=== PATIENT | male | born 2000 | race Caucasian/White ===

== ENCOUNTER 2018-01-26 19:27 | Emergency (ER) | payer BC, OTHER ==
[2018-01-26] MEDS ORDERED: Ondansetron HCl/PF 4 MG/2 ML Vial ONE (19:37)
[2018-01-26 20:10] LABS: #Eosinphils 0.1 thou/uL (0.0-0.7); #Monocytes 0.4 thou/uL (0.11-0.59); #Neutrophils 6.2 thou/uL (1.40-6.50); %Basophils 0.1 % (0.0-1.0); %Neutrophils 70.9 % (31.0-61.0); Hemoglobin 15.1 g/dL (14.0-18.0); Mean Corpuscular HGB CONC 36.2 g/dL (32.0-36.0); Mean Corpuscular Hemoglobin 31.8 pg (25.0-35.0); Mean Corpuscular Volume 87.8 fL (78.0-98.0); Mean Platelet Volume 6.5 fL (7.4-10.4); Platelet Count 339 thou/uL (130-400); RBC Distribution Width 11.7 % (11.5-14.5); Red Blood Cell (RBC) Count 4.76 mill/uL (4.00-5.20); White Blood Cell (WBC) Count 8.8 thou/uL (4.8-10.8)
[2018-01-26 20:31] LABS: Acetaminophen Less than 6.0 mcg/mL (10.0-30.0); Alcohol 233 mg/dL (Less than 10); Salicylate Less than 8.0 mg/dL (15.0-30.0)
[2018-01-26 20:32] LABS: Anion Gap 14 mmol/L (10-20); BUN (Urea Nitrogen) 6 mg/dL (8.4-21.0); CK (CPK) 54 U/L (30-200); Calc. Creatinine Clearance 0 mL/min (70-130); Calcium 8.4 mg/dL (7.8-10.44); Carbon Dioxide 21 mmol/L (22-29); Chloride 115 mmol/L (98-107); Estimated GFR-MDRD Greater than 90; Glucose 102 mg/dL (70-105); Potassium 3.6 mmol/L (3.5-5.1); Sodium 146 mmol/L (136-145)
== END 2018-01-26 21:26 | disposition home or self-care (01) ==
LOC: ERS 19:27
DX: R07.81 Pleurodynia (principal)
CPT/HCPCS: 80048; 80307; 82550; 85025; 96361; 96374; J2405

== ENCOUNTER → 2018-03-13 | Day surgery (SDC) | payer BC ==
[~2018-03-13] MED LIST: Bupivacaine/Epinephrine 0.25% 30 ML VIAL ONE; Dexamethasone 20 MG/5 ML VIAL ONE; Fentanyl 100 MCG/2 ML VIAL ONE; Glycopyrrolate 0.2 MG/ML 5 ML SYRINGE ONE; HYDROcodone/Acetaminophen 5/325 mg Tablet ONE; Ketorolac Tromethamine 30 MG/ML VIAL ONE; Lidocaine 1% PF 5 ML VIAL ONE; Ondansetron PF 4 MG/2 ML Vial ONE; PROPOFOL 200 MG/20 ML VIAL ONE; Piperacillin/Tazobactam 4.5 GM VIAL ONE; Sodium Chloride 0.9% 100 ML ONE; Succinylcholine Chloride 20 MG/ML 10 ml SYRINGE FS ONE
[2018-03-13 12:39] LABS: #Basophils 0.1 thou/uL (0.0-0.2); #Eosinphils 0.1 thou/uL (0.0-0.7); #Lymphocytes 2.1 thou/uL (1.20-3.40); #Monocytes 0.7 thou/uL (0.11-0.59); #Neutrophils 9.5 thou/uL (1.40-6.50); %Basophils 0.5 % (0.0-1.0); %Eosinophils 0.6 % (0.0-10.0); %Lymphocytes 16.7 % (28.0-48.0); %Monocytes 5.3 % (0.0-4.0); %Neutrophils 76.9 % (31.0-61.0); Hemoglobin 16.1 g/dL (14.0-18.0); Mean Corpuscular Hemoglobin 28.1 pg (25.0-35.0); Mean Corpuscular Volume 82.7 fL (78.0-98.0); Mean Platelet Volume 6.9 fL (7.4-10.4); Platelet Count 307 thou/uL (130-400); RBC Distribution Width 10.5 % (11.5-14.5); Red Blood Cell (RBC) Count 5.74 mill/uL (4.00-5.20); White Blood Cell (WBC) Count 12.3 thou/uL (4.8-10.8)
[2018-03-13 12:44] LABS: Bilirubin Negative (Negative); Blood, Urine Negative (Negative); Clarity Clear (Clear); Glucose, Urine (Dipstick) Negative (Negative); Leukocyte Negative (Negative); Nitrite Negative (Negative); Protein, Urine (Dipstick) Negative (Neg-Trace); Specific Gravity, Urine 1.015 (1.005-1.030)
[2018-03-13 12:56] LABS: ALT (SGPT) 19 U/L (8-55); AST (SGOT) 16 U/L (10-45); Albumin 4.9 g/dL (3.5-5.0); Alkaline Phosphatase 81 U/L (Less than 750); Anion Gap 15 mmol/L (10-20); BUN (Urea Nitrogen) 12 mg/dL (8.4-21.0); Bilirubin, Total 2.1 mg/dL (0.2-1.2); Calc. Creatinine Clearance 0 mL/min (70-130); Calcium 9.8 mg/dL (7.8-10.44); Carbon Dioxide 24 mmol/L (22-29); Chloride 105 mmol/L (98-107); Estimated GFR-MDRD Greater than 90; Globulin 3.3 g/dL (2.4-3.5); Glucose 86 mg/dL (70-105); Lipase 7 U/L (8-78); Potassium 3.7 mmol/L (3.5-5.1); Protein, Total 8.2 g/dL (6.0-8.3); Sodium 140 mmol/L (136-145)
--- NOTE | 2018-03-13 15:05 | CT ---
CT ABDOMEN WITH CONTRAST CT PELVIS WITH CONTRAST: DATE: 03/13/18 TIME: 1419 hours HISTORY: 17-year-old male with right lower quadrant abdominal pain with nausea and diarrhea, with anorexia. Dr. Grimm reported the perforated appendicitis by telephone to Dr. Aidan Acevedo of the [facility] emergency department at 1428 hours on 03/13/18. COMPARISON: None. TECHNIQUE: IV injection of iodinated contrast media: 100 mL Isovue-300. Oral contrast media: Administered. FINDINGS: The appendix is thickened up to 10 mm caliber, and is surrounded by a small amount of periappendiceal fluid. No abscess. No pneumoperitoneum. The urinary bladder, abdominal aorta, bilateral kidneys, adr enals, pancreas, liver, and spleen are normal. No small bowel dilation. No acute findings of the colo n. Lung bases are grossly clear. IMPRESSION: Positive for acute appendicitis, probably perforated. JNR CODE CR.
--- NOTE | 2018-03-13 17:00 | HP ---
DATE OF ADMISSION: 03/13/2018 HISTORY OF PRESENT ILLNESS: Mr. Lind is a 17-year-old man [facility] [place]. Patient was complaining of insidious onset periumbilical abdominal pain which started yesterday and soon set on the right lower quadrant. Pain was described as sharp, associated with one episode of nausea, but no emesis. He has had one bout of diarrhea since. He denies any fev ers or chills. The pain is now worsened to include the left lower quadrant. Workup included a CT scan of the abdomen and pelvis which was notable for possible perforated appendi x. The patient was transferred to [facility] in [place], [place] for upper level surgical care. At the time of my evaluation, the patient is awake and alert, complains of a 7/10 right lower quadrant a bdominal pain. He denies any fevers or chills. PAST MEDICAL HISTORY: Denies any previous medical problems. PAST SURGICAL HISTORY: Denies any previous surgeries. SOCIAL HISTORY: He is single, lives independently. He admits to smoking marijuana occasionally. He admits occasional intake of ethanol in moderate amounts. He denies any other illicit drug abuse. FAMILY HISTORY: Notable for both paternal grandparents with diabetes mellitus. His paternal grandfa ther from complications of prostatic carcinoma. He denies any family history of heart disease o r essential hypertension. PREHOSPITALIZATION MEDICATIONS: None. ALLERGIES: Patient denies any known drug allergies. REVIEW OF SYSTEMS: A 10-point review of systems is essentially unremarkable except for as stated in past medical history and chief complaint. PHYSICAL EXAMINATION: GENERAL: This reveals a 17-year-old normally developed man who is otherwise coherent and interactive and appears stated age. Patient is alert and oriented x3, appears to be in moderate acute distress secondary to right lower quadrant abdominal pain. VITAL SIGNS: Today include blood pressure 120/74, pulse is 81, respiration rate is 17, temperature i s 98.5 degrees Fahrenheit, oxygen saturation is 99% on room air. HEENT: Reveals normocephalic and atraumatic. Pupils are equal, round, reactive to light and accommo dation. Extraocular muscles are intact bilaterally. No sclerae icterus is present. Oral mucosa is pink and moist. No lesions are noted. NECK: Supple. No palpable lymphadenopathy or thyromegaly present. CARDIOVASCULAR: Reveals regular rate and rhythm, no murmurs or gallops auscultated. LUNGS: Clear to auscultation bilaterally. Breathing is regular and unlabored. ABDOMEN: Soft and nondistended. He has right lower quadrant tenderness to palpation. He has a positive Rovsing sign. Liver and spleen otherwise nonpalpable below costal margin. EXTREMITIES: Reveals 2+ radial and pedal pulses bilaterally. No ankle edema is present. NEUROLOGIC: Reveals no focal neurological deficits present. PERTINENT LABORATORY FINDINGS: Today includes a CBC with 12,300 white blood cells, hemoglobin and he matocrit 16.1 and 47.5 respectively. Platelet count is 307,000. Metabolic profile: Sodium 140, pot assium is 3.7, chloride is 105, bicarbonate is 24, BUN 12, creatinine 0.84, glucose 86, total bilirub in is 2.1, AST and ALT are 16 and 19 respectively. Serum lipase is normal at 7. I have personally reviewed his CT scan of the abdomen and pelvis which reveals a dilated thick-walled appendix with periappendiceal fat stranding and periappendiceal free fluid. No pneumoperitoneum is present. IMPRESSION: Acute appendicitis, likely with perforation. PLAN: Laparoscopic appendectomy. Above findings and plan has been discussed with the patient who indicates understanding of informatio n given. I have also advised the patient of the risk and benefits of the proposed surgery to include , but not limited to bleeding, infection, injury to bowel and surrounding structures. Patient indica stevenson understanding of information I have given him today in the presence of his nurse. I have answere d his questions. The patient has granted consent for this admission and surgical intervention.
--- NOTE | 2018-03-14 00:49 | OP ---
DATE OF OPERATION: 03/13/2018 PREOPERATIVE DIAGNOSIS: Acute appendicitis. POSTOPERATIVE DIAGNOSIS: Acute retrocecal appendicitis. OPERATION PERFORMED: Laparoscopic appendectomy. SURGEON: Juan Diego Castro DO ANESTHESIA: General endotracheal. ESTIMATED BLOOD LOSS: 10 mL FLUIDS GIVEN: 800 mL crystalloids. SPONGE AND INSTRUMENT COUNT: Certified as correct x2. COMPLICATIONS: None apparent at the time of operation. INDICATIONS FOR OPERATION: A 17-year-old man who presented with a 24-hour history of right lower quadrant abdominal pain. Clinical and radiographic examination was consistent with acute appe ndicitis for which patient was brought to the operating room for appendectomy. FINDINGS: Consistent with a dilated suppurative, but nonperforated retrocecal appendix. DESCRIPTION OF PROCEDURE: Informed consent was obtained from the patient who was brought to the oper ating room and placed in supine position. Following general anesthesia, abdomen is sterilely prepped and draped in usual fashion. Skin below the umbilicus was infiltrated with 0.25% Marcaine with epin ephrine. A small curvilinear infraumbilical incision was made using an 11 scalpel. Veress needle wa s inserted through the incision and placed in the peritoneal cavity through which the abdomen was ins ufflated with 3 liters of CO2 gas. Intraabdominal pressure was noted at 2 mmHg. Following abdominal insufflation, Veress needle was removed and replaced with a 5-mm trocar introduced using a Visiport under laparoscopy. Laparoscopy confirmed proper placement of the port, no injuries to underlying str uctures. An additional laparoscopy reveals the right lower quadrant encased by omental adhesions. U nder direct laparoscopy, 5-mm suprapubic and 12-mm left lower quadrant ports were placed after the ov erlying skin was infiltrated with 0.25% Marcaine with epinephrine and appropriate incision was made. The patient was placed in a Trendelenburg position, rotated to his left. I introduced Prestige gras per through the left lower quadrant port site using this to bluntly take down omental adhesions to re veal the cecum. The cecum is tender to the right lateral gutter by fibrotic tissues. I then used a [place] dissector with cautery to take down the fibrotic tissues from the right lateral gutter, care taken to avoid injuries to bowel. Endo Lea forceps was then introduced through the suprapubic p ort site, grasping the retrocecal appendix which was elevated. I then used a [place] dissector to c reate a rent through the mesoappendix at the base. Using a blue load of the Endo-MARCELA, appendix was d ivided at the appendical cecal junction. Endo-MARCELA with a white load was then used to divide the meso appendix with good hemostasis. Appendix is delivered of the abdominal cavity using an EndoCatch. Di stal ileum was run from the ileocecal junction to proximal 2 feet. No Meckel's diverticulum was note d. Finding no other pathology, laparoscopy was terminated. Operative site was inspected and is inta ct. No active bleeding present. Finding no other pathology, laparoscopy was terminated. Fascia of the left lower quadrant port was closed using 0 Vicryl suture and Endo closure device under laparosco py. Abdomen was desufflated. Remainder of the ports and instruments were removed and accounted for. Skin incisions were closed using 4-0 Monocryl suture in subcuticular fashion. Dermabond was applie d over the incisional closure. The patient tolerated the operation without any apparent complication and was returned to the recovery room in a satisfactory condition.
== END ==
LOC: SCSER 11:46 → ERS 14:57
PROVIDERS: ATTEND Surgery
PROC: 0DTJ4ZZ Resection of Appendix, Percutaneous Endoscopic Approach (ICD-10-PCS; principal; 2018-03-13)
DX: K35.80 Unspecified acute appendicitis (principal)
CPT/HCPCS: 74177; 80053; 81003; 83690; 85025; 88304; 96361; 96365; 96374; 96375; J1100; J1885; J2001; J2405; J2543; J2704; J3010; J7050

== ENCOUNTER 2018-03-14 07:52 | Observation (INO) | payer BC ==
[2018-03-14] MEDS ORDERED: Ketorolac Tromethamine 30 MG/ML VIAL ONE (08:36)
[2018-03-14 08:48] LABS: ALT (SGPT) 12 U/L (8-55); AST (SGOT) 12 U/L (10-45); Albumin 3.9 g/dL (3.5-5.0); Alkaline Phosphatase 61 U/L (Less than 750); Anion Gap 13 mmol/L (10-20); BUN (Urea Nitrogen) 12 mg/dL (8.4-21.0); Bilirubin, Total 1.2 mg/dL (0.2-1.2); Calc. Creatinine Clearance 0 mL/min (70-130); Calcium 8.6 mg/dL (7.8-10.44); Carbon Dioxide 25 mmol/L (22-29); Chloride 103 mmol/L (98-107); Estimated GFR-MDRD Greater than 90; Globulin 2.5 g/dL (2.4-3.5); Glucose 187 mg/dL (70-105); Lipase Less than 4 U/L (8-78); Potassium 4.4 mmol/L (3.5-5.1); Protein, Total 6.4 g/dL (6.0-8.3); Sodium 137 mmol/L (136-145)
[2018-03-14 08:52] LABS: Mean Corpuscular Volume 88.4 fL (78.0-98.0); Mean Platelet Volume 6.6 fL (7.4-10.4); Platelet Count 496 thou/uL (130-400); RBC Distribution Width 11.5 % (11.5-14.5); White Blood Cell (WBC) Count 27.2 thou/uL (4.8-10.8)
[2018-03-14 09:10] LABS: Band 12 % (5-11); Lymphocytes 6 % (28-48); MDiff Complete? YES; Monocytes 3 % (0-4); Neutrophil 78 % (31-61); RBC Morphology Normal; Reactive Lymphocytes 1 % (0-10)
[2018-03-14] MEDS ORDERED: Ondansetron PF 4 MG/2 ML Vial IVP PRN (09:17)
[2018-03-14] MEDS ORDERED: Promethazine HCl 25 MG/ML VIAL IM PRN (09:17)
[2018-03-14] MEDS ORDERED: hydrALAZINE 20 MG/ML VIAL SLOW IVP PRN (09:17)
[2018-03-14] MEDS ORDERED: traMADol HCl 50 MG TAB PO PRN (09:19)
[2018-03-14] MEDS ORDERED: Ondansetron PF 4 MG/2 ML Vial ONE (09:37)
[2018-03-14] MEDS ORDERED: Promethazine HCl 25 MG/ML VIAL ONE (10:04)
--- NOTE | 2018-03-14 10:49 | HP ---
HISTORY OF PRESENT ILLNESS: A 17-year-old man who is postoperative day #1 today status post laparosc opic appendectomy. The patient presented to the emergency department with complaint of abdominal katya n associated with nausea and one bout of emesis. Denies any fevers or chills. He did have a near syncopal episode while trying to use the bathroom this morning. He did pass gas a bout 30 minutes before my evaluation in the emergency department. PAST MEDICAL HISTORY: He has no previous medical problems. PAST SURGICAL HISTORY: He is postop day #1 status post laparoscopic appendectomy. Otherwise, no oth er surgeries. SOCIAL HISTORY: He is single, living independently. The patient admits to smoking marijuana occasio slava. He admits to occasional intake of ethanol in moderate amounts. Denies any illicit drug abuse . FAMILY HISTORY: Notable for both grandparents with diabetes mellitus. His paternal grandfather from complications of prostatic carcinoma. He has no family history of heart disease or hypertensio n. PREHOSPITAL MEDICATIONS: Include recently prescribed tramadol 50 mg as well as Tylenol 1000 mg p.o. q.6 hours. ALLERGIES: Patient denies any known drug allergies. REVIEW OF SYSTEMS: Essentially unremarkable except as stated in the past medical history and chief c omplaint. PHYSICAL EXAMINATION: GENERAL: This reveals a 17-year-old normally developed man who is otherwise coherent and interactive . He appears to be stated age and in no acute distress. ABDOMEN: Soft, nondistended. All incisions are intact, clean, and dry. He has incisional tendernes s to palpation with no rebound tenderness present. HEART: Reveals regular rate and rhythm. LUNGS: Clear to auscultation bilaterally. Breathing is regular and unlabored. NEUROLOGICAL: Examination reveals no focal deficits present. LABORATORY DATA: Laboratory findings today includes CBC with 27,200 white blood cells, hemoglobin an d hematocrit are 12.0 and 35.4 respectively. Platelet count is 496,000. Metabolic profile: Sodium 137, potassium 4.4, chloride is 103, bicarbonate is 25, BUN 12, creatinine is 1.0, glucose is 187, to [place]in[place] bilirubin is 1.2, AST and ALT 12 and 12 respectively. Lipase less than 4. IMPRESSION: 1. Postoperative day #1 status post laparoscopic appendectomy. 2. Adynamic ileus. PLAN: The patient will be placed on observation. We will increase activity and start clear liquid d iet once nausea resolves. There is no acute surgical indication for this patient at this time. Abov e findings and plan discussed with the patient and both parents at bedside. They all indicated under standing of information given. I answered their questions.
[2018-03-14 11:19] VITALS: BMI 29.7
[2018-03-14] MEDS: Acetaminophen 500 MG TAB PO SCH ×4 (11:29→20:13)
[2018-03-14 12:17] LABS: Acetaminophen Less than 6.0 mcg/mL (10.0-30.0); Alcohol Less than 10 mg/dL (Less than 10); Salicylate Less than 8.0 mg/dL (15.0-30.0)
[2018-03-14 12:26] LABS: Lactic Acid 4.7 mmol/L (0.5-2.2)
[2018-03-14] MEDS: Lactated Ringer's 1,000 ML IV SCH ×2 (12:54→20:23)
[2018-03-14] MEDS ORDERED: Scopolamine 1.5 mg/72 hour Patch TOP SCH (13:00)
[2018-03-14] MEDS ORDERED: Dexamethasone 4 mg/ml Vial SLOW IVP SCH (13:30)
[2018-03-14 19:09] LABS: #Lymphocytes 1.3 thou/uL (1.20-3.40); #Monocytes 0.8 thou/uL (0.11-0.59); %Basophils 0.1 % (0.0-1.0); %Eosinophils 0.2 % (0.0-10.0); %Lymphocytes 6.5 % (28.0-48.0); %Monocytes 3.7 % (0.0-4.0); %Neutrophils 89.5 % (31.0-61.0); Hemoglobin 8.4 g/dL (14.0-18.0); Mean Corpuscular HGB CONC 35.3 g/dL (32.0-36.0); Mean Corpuscular Hemoglobin 31.1 pg (25.0-35.0); Mean Corpuscular Volume 88.2 fL (78.0-98.0); Mean Platelet Volume 6.8 fL (7.4-10.4); Platelet Count 426 thou/uL (130-400); RBC Distribution Width 11.7 % (11.5-14.5); Red Blood Cell (RBC) Count 2.69 mill/uL (4.00-5.20); White Blood Cell (WBC) Count 20.1 thou/uL (4.8-10.8)
[2018-03-14 19:15] LABS: Anion Gap 13 mmol/L (10-20); BUN (Urea Nitrogen) 14 mg/dL (8.4-21.0); Calc. Creatinine Clearance 158 mL/min (70-130); Calcium 8.3 mg/dL (7.8-10.44); Carbon Dioxide 23 mmol/L (22-29); Chloride 106 mmol/L (98-107); Estimated GFR-MDRD Greater than 90; Glucose 132 mg/dL (70-105); Sodium 138 mmol/L (136-145)
[2018-03-14] MEDS: Famotidine 20 MG TAB PO SCH (20:13)
--- NOTE | 2018-03-14 20:53 | RAD ---
CHEST ONE VIEW: 03/14/18 HISTORY: Syncope. COMPARISON: None. FINDINGS: Normal cardiac silhouette. Lungs and pleural spaces are clear. Diminished lung volumes, likely due to poor inspiratory effort. No pneumothorax or osseous abnormalities. IMPRESSION: No acute cardiopulmonary process. POS: [facility]
[2018-03-14] MEDS: Famotidine/PF 20 mg/2ml Vial SLOW IVP SCH (21:01)
[2018-03-14] MEDS: Dexamethasone 4 mg/ml Vial SLOW IVP SCH (21:15)
[2018-03-14 22:40] LABS: Hemoglobin 7.5 g/dL (14.0-18.0)
[2018-03-14 22:52] LABS: Lactic Acid 1.4 mmol/L (0.5-2.2)
[2018-03-14] MEDS: Piperacillin/Tazobactam 3.375 GM in Sodium Chloride 0.9% 100 ML IVPB SCH (23:39)
[2018-03-14] MEDS ORDERED: Calcium Chloride 1 GM/10 ML Abboject SYRINGE IVP SCH (23:45)
[2018-03-15 00:21] LABS: INR-International Normal Ratio 1.4; PTT 32.6 SEC (22.9-36.1); Prothrombin Time 17.2 SEC (12.0-14.7)
[2018-03-15] MEDS: Acetaminophen 500 MG TAB PO SCH ×4 (05:33→23:34)
[2018-03-15] MEDS: Dexamethasone 4 mg/ml Vial SLOW IVP SCH ×2 (05:33→17:07)
[2018-03-15] MEDS: Piperacillin/Tazobactam 3.375 GM in Sodium Chloride 0.9% 100 ML IVPB SCH ×4 (06:15→23:34)
--- NOTE | 2018-03-15 08:13 | CT ---
PRELIMINARY REPORT/[facility]/EMERGENTY AFTER-HOURS PROCEDURE CT Abdomen and Pelvis With Intravenous Contrast EXAM DATE/TIME: 03/15/2018 1:25 AM CLINICAL HISTORY: 17 years old, male; Screening exam; Post surgical status; Appy; Patient HX: S/P appy; Additional info : Additional delayed images provided 4 min post TECHNIQUE: Axial computed tomography images of the abdomen and pelvis with intravenous contrast. Coronal reformatted images were created and reviewed. CONTRAST: 100 ml of ISO 370 administered intravenously. COMPARISON: No relevant prior studies available. FINDINGS: Lower thorax: Small bilateral pleural effusions. ABDOMEN: Liver: Normal. No mass. Gallbladder and bile ducts: Normal. No calcified stones. No ductal dilation. Pancreas: Normal. No ductal dilation. Spleen: Normal. No splenomegaly. Adrenals: Normal. No mass. Kidneys and ureters: Normal. No hydronephrosis. Stomach and bowel: No bowel wall thickening or intestinal obstruction. Appendix: Small amount of nondependent pneumoperitoneum presumably a result of reported recent append ectomy. Prior appendectomy. PELVIS: Bladder: Unremarkable as visualized. Reproductive: Unremarkable as visualized. ABDOMEN and PELVIS: Intraperitoneal space: Large volume hemoperitoneum with large amount of hematoma extending from the r ight upper quadrant along the right paracolic gutter and into the pelvis. No extravasation of contras t to indicate brisk active hemorrhage. Bones/joints: No acute fracture. No dislocation. Soft tissues: No abscess. Expected postsurgical changes of anterior abdominal wall. Vasculature: Normal. No abdominal aortic aneurysm. Lymph nodes: Normal. No enlarged lymph nodes. IMPRESSION: 1. Large volume hemoperitoneum with large amount of hematoma extending from the right upper quadrant along the right paracolic gutter and into the pelvis. No extravasation of contrast to indicate brisk active hemorrhage. 2. Small amount of nondependent pneumoperitoneum presumably a result of reported recent appendectomy. Thank you for allowing us to participate in the care of your patient. Dictated and Authenticated by: Ethan Low MD 03/15/2018 2:25 AM Central Time ([place] & [place]) FINAL REPORT CT ABDOMEN AND PELVIS WITH IV COTNRAST: I agree with the preliminary report given by Dr. Ethan Low of [facility]. POS: [facility]
[2018-03-15 08:26] LABS: Hemoglobin 8.5 g/dL (14.0-18.0); Mean Corpuscular HGB CONC 33.3 g/dL (32.0-36.0); Mean Corpuscular Volume 90.2 fL (78.0-98.0); Mean Platelet Volume 6.4 fL (7.4-10.4); Platelet Count 317 thou/uL (130-400); RBC Distribution Width 11.9 % (11.5-14.5); Red Blood Cell (RBC) Count 2.83 mill/uL (4.00-5.20); White Blood Cell (WBC) Count 15.1 thou/uL (4.8-10.8)
[2018-03-15 08:45] LABS: Anion Gap 10 mmol/L (10-20); BUN (Urea Nitrogen) 12 mg/dL (8.4-21.0); Calc. Creatinine Clearance 199 mL/min (70-130); Calcium 8.7 mg/dL (7.8-10.44); Carbon Dioxide 24 mmol/L (22-29); Chloride 106 mmol/L (98-107); Estimated GFR-MDRD Greater than 90; Glucose 130 mg/dL (70-105); Potassium 4.3 mmol/L (3.5-5.1); Sodium 136 mmol/L (136-145)
[2018-03-15] MEDS: Famotidine/PF 20 mg/2ml Vial SLOW IVP SCH ×2 (08:59→20:13)
[2018-03-15 09:00] LABS: Band 13 % (5-11); MDiff Complete? YES; Monocytes 2 % (0-4); Neutrophil 85 % (31-61); PLT Morphology Comment Appears Adequate
[2018-03-15] MEDS: Famotidine 20 MG TAB PO SCH ×2 (09:13→20:02)
[2018-03-15] MEDS ORDERED: Bupivacaine/Epinephrine 0.25% 30 ML VIAL ONE (10:05)
[2018-03-15] MEDS ORDERED: Fentanyl 250 MCG/5 ML VIAL ONE (10:20)
[2018-03-15] MEDS ORDERED: Midazolam HCl 2 mg/2 ml Vial ONE ×2 (10:20→10:39)
[2018-03-15] MEDS ORDERED: diphenhydrAMINE 50 MG/ML VIAL ONE ×2 (11:29→13:55)
[2018-03-15 11:31] LABS: Amphetamine Not Detected (NotDetected); Barbiturates Screen Not Detected (NotDetected); Benzodiazepine Screen Not Detected (NotDetected); Cocaine Metabolite Screen Not Detected (NotDetected); Medtox Control Line Valid? VALID (VALID); Medtox Reader # READER 4; Methadone Not Detected (NotDetected); Methamphetamine Not Detected (NotDetected); Opiate Screen Not Detected (NotDetected); Oxycodone Screen Not Detected (NotDetected); Phencyclidine (PCP) Not Detected (NotDetected); THC/Cannabinoid Screen Not Detected (NotDetected); Tricyclic Screen Not Detected (NotDetected)
[2018-03-15] MEDS ORDERED: Meperidine HCl/PF 25 MG/ML VIAL ONE (13:05)
--- NOTE | 2018-03-15 13:13 | OP ---
DATE OF OPERATION: 03/15/2018 PREOPERATIVE DIAGNOSES: 1. Status post laparoscopic appendectomy postop day #2. 2. Acute hemoperitoneum. 3. Acute blood loss anemia. POSTOPERATIVE DIAGNOSES: 1. Status post laparoscopic appendectomy postop day #2. 2. Acute hemoperitoneum. 3. Acute blood loss anemia. PROCEDURES PERFORMED: Laparoscopic abdominal washout. SURGEON: Juan Diego Castro D.O. ANESTHESIA: General endotracheal. ESTIMATED BLOOD LOSS: Negligible. However, 3700 mL of blood and ascites was evacuated from the jhony toneal cavity. No active bleeding was seen in exploration. FLUIDS GIVEN: 1000 mL crystalloid, 1 unit packed red blood cells. Urinary output is 600 mL SPONGE AND INSTRUMENT COUNT: Certified as correct x2. COMPLICATIONS: None apparent at time of operation. INDICATIONS FOR PROCEDURE: A 17-year-old man who is postop day #2 status post laparoscopic appendectomy. The patient was discharged home postoperatively and returned postop day #1 with near syncopal episodes associated with multiple episodes of nausea and emesis. The patient also gives a h istory of one hard fall at home following a near syncopal episode in the bathroom. He did not suffer any head trauma. Initial hemoglobin on this readmission was 12.0, however, on subsequent checks the hemoglobin had momo pped to 8.5. CT scan of the abdomen and pelvis was obtained which revealed a large hemoperitoneum. The patient was therefore brought to the operating room for exploration and abdominal washout. Findings are consistent with large hemoperitoneum. Exploration of all 4 quadrants and pelvis including the right lower quadrant operative site revealed no active bleeding. DESCRIPTION OF PROCEDURE: Informed consent obtained from the patient who was brought to the operatin g room and placed in supine position. Following general anesthesia, the abdomen is sterilely prepped and draped in usual fashion after Schneider catheter was inserted and placed to bedside drain. Skin bel ow the umbilicus was infiltrated with 1% lidocaine with epinephrine. The previous incision was reope osmany with a scalpel. Umbilical stalk grasped with Elian's and elevated. Veress needle inserted thro ugh the incision through which the abdomen was insufflated with 2 liters of CO2 gas. Intraabdominal pressure was noted at 4 mmHg. Following abdominal insufflation, Veress needle was removed and a 5 mm trocar inserted using the Visiport under laparoscopy. Under direct laparoscopy, 5 mm left lower myron drant port as well as 5 mm suprapubic ports were placed going through the previous incisions after th e overlying skin was infiltrated with 0.25% Marcaine with epinephrine. Large amount of blood and claudia ts were evacuated from the peritoneal cavity. We explored the abdomen in all 4 quadrants, evacuating bloody ascites from above the liver and above the spleen. No evidence of liver or splenic laceratio n were noted within the visual field of the laparoscope. All 4 quadrants were irrigated with saline after old blood and clots were evacuated. The operative s ite in the right lower quadrant was again reexamined and no active bleeding is noted here. However, given this recent episode of hemoperitoneum and finding no nidus of active bleeding, it was elected t o place some Sam[place] in the previous operative field. Finding no other pathology, laparoscopy was ter minated. Fascia of the left lower quadrant port was closed using 0 Vicryl suture and Endo closure de vice under laparoscopy. Abdomen was desufflated. All ports and instruments removed and accounted fo r. Skin incisions were closed using 4-0 Monocryl suture in subcuticular fashion. Dermabond is appli ed over the incisional closure. The patient tolerated the operation without any apparent complicatio n and was returned to recovery room in satisfactory condition.
[2018-03-15] MEDS ORDERED: Esmolol 100 MG/10 ML VIAL ONE (13:23)
[2018-03-15] MEDS ORDERED: Sodium Chloride For Inhalation 0.9% 3 ML NEB ONE (13:47)
[2018-03-15] MEDS ORDERED: Ondansetron PF 4 MG/2 ML Vial ONE (13:55)
[2018-03-15] MEDS ORDERED: Succinylcholine Chloride 20 MG/ML 10 ml SYRINGE FS ONE (13:55)
[2018-03-15] MEDS ORDERED: Metoclopramide HCl 10 MG/2 ML VIAL ONE (13:55)
[2018-03-15] MEDS ORDERED: Calcium Chloride 1 GM/10 ML Abboject SYRINGE ONE (13:55)
[2018-03-15] MEDS ORDERED: PROPOFOL 200 MG/20 ML VIAL ONE (13:55)
[2018-03-15] MEDS ORDERED: Dexamethasone 20 MG/5 ML VIAL ONE (13:55)
[2018-03-15] MEDS ORDERED: Lidocaine 1% PF 5 ML VIAL ONE (13:55)
[2018-03-15 14:06] LABS: #Eosinphils 0.1 thou/uL (0.0-0.7); #Lymphocytes 0.9 thou/uL (1.20-3.40); #Monocytes 0.6 thou/uL (0.11-0.59); #Neutrophils 13.8 thou/uL (1.40-6.50); %Basophils 0.1 % (0.0-1.0); %Eosinophils 0.6 % (0.0-10.0); %Lymphocytes 5.7 % (28.0-48.0); %Monocytes 3.6 % (0.0-4.0); Hemoglobin 8.9 g/dL (14.0-18.0); Mean Corpuscular HGB CONC 34.1 g/dL (32.0-36.0); Mean Corpuscular Volume 90.9 fL (78.0-98.0); Mean Platelet Volume 6.4 fL (7.4-10.4); Platelet Count 285 thou/uL (130-400); RBC Distribution Width 12.2 % (11.5-14.5); Red Blood Cell (RBC) Count 2.88 mill/uL (4.00-5.20); White Blood Cell (WBC) Count 15.3 thou/uL (4.8-10.8)
[2018-03-15 14:13] LABS: INR-International Normal Ratio 1.3; PTT 32.1 SEC (22.9-36.1); Prothrombin Time 16.4 SEC (12.0-14.7)
[2018-03-15] MEDS ORDERED: Promethazine HCl 25 MG/ML VIAL SLOW IVP PRN (14:26)
[2018-03-15] MEDS ORDERED: Meperidine HCl/PF 25 MG/ML VIAL SLOW IVP PRN (14:26)
[2018-03-15] MEDS ORDERED: Promethazine HCl 25 MG/ML VIAL IM PRN (14:26)
[2018-03-15] MEDS ORDERED: Ondansetron HCl/PF 4 MG/2 ML Vial IVP PRN (14:26)
[2018-03-15] MEDS ORDERED: Levalbuterol HCl 1.25 MG/0.5 ML NEB NEB SCH (14:30)
[2018-03-15 14:40] LABS: Anion Gap 12 mmol/L (10-20); BUN (Urea Nitrogen) 7 mg/dL (8.4-21.0); Calc. Creatinine Clearance 199 mL/min (70-130); Calcium 9.1 mg/dL (7.8-10.44); Carbon Dioxide 25 mmol/L (22-29); Chloride 107 mmol/L (98-107); Estimated GFR-MDRD Greater than 90; Glucose 127 mg/dL (70-105); Magnesium 1.4 mg/dL (1.7-2.2); Phosphorus 3.4 mg/dL (2.3-4.7); Potassium 4.1 mmol/L (3.5-5.1); Sodium 140 mmol/L (136-145)
[2018-03-15] MEDS ORDERED: Sodium Chloride For Inhalation 0.9% 3 ML NEB NEB SCH (15:00)
[2018-03-15] MEDS ORDERED: Ketorolac Tromethamine 30 MG/ML VIAL ONE (15:33)
--- NOTE | 2018-03-15 16:21 | RAD ---
PORTABLE UPRIGHT FRONTAL CHEST RADIOGRAPH: DATE: 03/15/2018. COMPARISON: None. HISTORY: Negative pressure pulmonary edema. FINDINGS: There is mild pulmonary vascular congestion. No pneumothorax or pleural fluid is seen. There is mil d increased linear interstitial density in the right upper lobe which may represent a mild degree of infiltrate or asymmetric edema. IMPRESSION: Mild interstitial prominence in the right upper lobe as above. POS: [facility]
[2018-03-15] MEDS ORDERED: Acetaminophen 1,000 MG in Premix Bag 1 BAG IVPB SCH (16:30)
[2018-03-15] MEDS ORDERED: Ketorolac Tromethamine 30 MG/ML VIAL IVP SCH (16:30)
[2018-03-15] MEDS ORDERED: Dexamethasone 4 mg/ml Vial ONE (16:58)
[2018-03-15] MEDS: Lactated Ringer's 1,000 ML IV SCH ×2 (17:07)
[2018-03-15 17:43] LABS: Bilirubin Negative (Negative); Blood, Urine Negative (Negative); Clarity CLEAR (Clear); Glucose, Urine (Dipstick) Negative (Negative); Leukocyte Negative (Negative); Nitrite Negative (Negative); Protein, Urine (Dipstick) Negative (Neg-Trace); Specific Gravity, Urine 1.027 (1.002-1.036); Urobilinogen 0.2 mg/dL (0.2-1.0)
[2018-03-15 19:10] LABS: Base Excess (BEa) 3.8 mEq/L (-2.0 to +3.0); Calcium, Ionized 1.14 mmol/L (1.12-1.30); Carboxyhemoglobin (COHb) 0.9 gm% (0.0-3.0); Hemoglobin (Hb) 8.9 g/dL (11.4-15.4); O2 Tension (PaO2) 64.3 mmHg (80.0-100.0); Potassium - ABG Lab 3.75 mmol/L (3.70-5.30); pH, Arterial 7.45 (7.35-7.45)
[2018-03-15 19:13] LABS: Puncture Site LR
[2018-03-15] MEDS: traMADol HCl 50 MG TAB PO PRN (23:34)
[2018-03-16 04:26] LABS: Band 6 % (5-11); Hemoglobin 7.4 g/dL (14.0-18.0); Lymphocytes 10 % (28-48); MDiff Complete? YES; Mean Corpuscular HGB CONC 33.8 g/dL (32.0-36.0); Mean Corpuscular Hemoglobin 30.8 pg (25.0-35.0); Mean Corpuscular Volume 91.1 fL (78.0-98.0); Mean Platelet Volume 6.6 fL (7.4-10.4); Monocytes 6 % (0-4); Neutrophil 78 % (31-61); PLT Morphology Comment Appears Adequate; Platelet Count 248 thou/uL (130-400); White Blood Cell (WBC) Count 11.9 thou/uL (4.8-10.8)
[2018-03-16 04:37] LABS: ALT (SGPT) 14 U/L (8-55); AST (SGOT) 18 U/L (10-45); Albumin 3.1 g/dL (3.5-5.0); Alkaline Phosphatase 43 U/L (Less than 750); Anion Gap 7 mmol/L (10-20); BUN (Urea Nitrogen) 9 mg/dL (8.4-21.0); Bilirubin, Total 0.6 mg/dL (0.2-1.2); Calc. Creatinine Clearance 218 mL/min (70-130); Calcium 8.2 mg/dL (7.8-10.44); Carbon Dioxide 31 mmol/L (22-29); Chloride 108 mmol/L (98-107); Estimated GFR-MDRD Greater than 90; Globulin 2.1 g/dL (2.4-3.5); Glucose 130 mg/dL (70-105); Phosphorus 2.6 mg/dL (2.3-4.7); Potassium 4.1 mmol/L (3.5-5.1); Protein, Total 5.2 g/dL (6.0-8.3); Sodium 142 mmol/L (136-145)
[2018-03-16] MEDS: Acetaminophen 500 MG TAB PO SCH ×4 (05:25→21:06)
[2018-03-16] MEDS: Piperacillin/Tazobactam 3.375 GM in Sodium Chloride 0.9% 100 ML IVPB SCH ×4 (05:25→20:32)
[2018-03-16] MEDS: Lactated Ringer's 1,000 ML IV SCH (05:26)
[2018-03-16] MEDS: Ferrous Sulfate 325 MG TAB PO SCH ×2 (09:14→16:04)
[2018-03-16] MEDS: Famotidine/PF 20 mg/2ml Vial SLOW IVP SCH ×2 (09:14→20:32)
[2018-03-16] MEDS: Ascorbic Acid 500 mg Chewable Tablet PO SCH ×2 (09:15→20:31)
[2018-03-16] MEDS: Famotidine 20 MG TAB PO SCH ×2 (09:15→20:32)
--- NOTE | 2018-03-16 12:55 | RAD ---
PORTABLE CHEST 1 VIEW: DATE: 03/16/2018. TIME: 8:12 p.m. HISTORY: Negative pressure pulmonary edema, followup. FINDINGS: Comparison is made with the exam of previous day. The heart size is normal. No lobar consolidation, pneumothoraces, or pleural effusions are seen. Mi ld interstitial prominence of the right upper lobe is again seen. IMPRESSION: Stable exam. POS: [facility]
--- NOTE | 2018-03-16 13:58 | ULT ---
LIMITED ABDOMINAL ULTRASOUND: HISTORY: Request was for evaluation of spleen size and the presence of free fluid. No free fluid is seen with in the abdomen. The spleen is 13.5 cm in length. IMPRESSION: Mild splenomegaly. No evidence of free fluid. POS: [facility]
--- NOTE | 2018-03-16 14:26 | PRG ---
DATE OF SERVICE: 03/16/2018 SUBJECTIVE: The patient is postop day #1 from a laparoscopic abdominal washout for intraabdominal bl eed after a laparoscopic appendectomy. The patient underwent his washout yesterday, he tolerated the procedure well. He did receive blood products yesterday and this morning, it appears that his hemog lobin has drifted down slightly again and will likely require 1 more unit of packed red blood cells. The patient complains of some weakness, but denied dizziness or lightheadedness upon standing. PHYSICAL EXAMINATION: VITAL SIGNS: Temperature is 98.7, heart rate 82, blood pressure 120/62, respirations 16, oxygen satu ration 96% on room air. GENERAL: The patient is resting comfortably in bed. He is awake, alert, and oriented x3. HEENT: Unremarkable. LUNGS: Clear to auscultation with good inspiratory and expiratory effort. HEART: Regular rate and rhythm. ABDOMEN: Soft, minimally tender with hypoactive bowel sounds. EXTREMITIES: Neurovascularly intact x4. LABORATORY DATA: White blood cell count 11.3, hemoglobin 7.4, hematocrit 21.9, platelets 248. Sodiu m 142, potassium 4.1, chloride 108, CO2 of 31, BUN 9, creatinine 0.76, glucose 130. LFTs are unremar kable. Magnesium 2.0, phosphorus 2.6. Radiographs this morning; AP chest shows a stable exam. Abdominal ultrasound shows no abdominal free fluid and mild splenomegaly. ASSESSMENT AND PLAN: 1. Status post abdominal washout after intraperitoneal bleed, status post laparoscopic appendectomy. 2. Acute blood loss anemia. Plan will be to continue supportive care. We will transfuse 1 unit of packed red blood cells. Repea t hemoglobin later tonight and again in the morning. We will transfer the patient to the surgical [facility], and we will advance his diet as his bowel function returns. The patient reports that he is pass ing gas but is concerned about having another episode of vomiting which caused him to come into the h ospital the second time. The evaluation, examination, laboratory, and radiographic findings were don e with Dr. Castro this morning during rounds.
--- NOTE | 2018-03-16 21:16 | EKG ---
Test Reason : SYNCOPE Blood Pressure : / mmHG Vent. Rate : 098 BPM Atrial Rate : 098 BPM P-R Int : 118 ms QRS Dur : 096 ms QT Int : 352 ms P-R-T Axes : 064 054 006 degrees QTc Int : 449 ms Normal sinus rhythm Borderline ECG Confirmed by LUCIE CHURCHILL D.O. ([id number]), editor sound AUTUMN JAMA ([id number]) on 03/16/2018 9:16:35 PM Referred By: Confirmed By:LUCIE CHURCHILL D.O.
[2018-03-17] MEDS: Acetaminophen 500 MG TAB PO SCH ×2 (03:27→10:28)
[2018-03-17] MEDS: Piperacillin/Tazobactam 3.375 GM in Sodium Chloride 0.9% 100 ML IVPB SCH (03:27)
[2018-03-17 05:43] LABS: #Eosinphils 0.1 thou/uL (0.0-0.7); #Lymphocytes 3.2 thou/uL (1.20-3.40); #Monocytes 0.8 thou/uL (0.11-0.59); #Neutrophils 6.7 thou/uL (1.40-6.50); %Basophils 0.1 % (0.0-1.0); %Eosinophils 1.2 % (0.0-10.0); %Lymphocytes 29.2 % (28.0-48.0); %Monocytes 7.2 % (0.0-4.0); %Neutrophils 62.4 % (31.0-61.0); Hemoglobin 9.7 g/dL (14.0-18.0); Hypochromia SLIGHT = 6-15 cells (100X) (0-5/hpf); Lymphocytes 30 % (28-48); MDiff Complete? YES; Mean Corpuscular HGB CONC 34.3 g/dL (32.0-36.0); Mean Corpuscular Hemoglobin 31.5 pg (25.0-35.0); Mean Corpuscular Volume 91.8 fL (78.0-98.0); Mean Platelet Volume 6.6 fL (7.4-10.4); Monocytes 4 % (0-4); Neutrophil 66 % (31-61); PLT Morphology Comment Appears Adequate; Platelet Count 324 thou/uL (130-400); RBC Distribution Width 12.5 % (11.5-14.5); Red Blood Cell (RBC) Count 3.08 mill/uL (4.00-5.20); White Blood Cell (WBC) Count 11.3 thou/uL (4.8-10.8)
[2018-03-17] MEDS: Ferrous Sulfate 325 MG TAB PO SCH (10:28)
[2018-03-17] MEDS: Famotidine 20 MG TAB PO SCH (10:28)
[2018-03-17] MEDS: Ascorbic Acid 500 mg Chewable Tablet PO SCH (10:29)
[2018-03-17] MEDS: traMADol HCl 50 MG TAB PO PRN (10:30)
[2018-03-17 12:06] VITALS: BP 115/74; TEMP 97.6
--- NOTE | 2018-03-18 10:45 | DIS ---
DATE OF ADMISSION: 03/14/2018 DATE OF DISCHARGE: 03/17/2018 ADMITTING PHYSICIAN: Juan Diego Castro D.O. DISCHARGING PHYSICIAN: Juan Diego Castro D.O. ADMITTING DIAGNOSES: 1. Postoperative day number 1 status post laparoscopic appendectomy. 2. Adynamic ileus. DISCHARGE DIAGNOSES: 1. Postoperative day number 4 status post laparoscopic appendectomy. 2. Adynamic ileus. 3. Intra-abdominal hemorrhage, resolved. 4. Acute blood loss anemia. OPERATIONS AND PROCEDURES: Laparoscopic abdominal washout on 03/15/2018. Please see a separate dict ation for operative report. HISTORY AND HOSPITAL COURSE: A 17-year-old man who is now postoperative day number 4 status post lap aroscopic appendectomy. The patient was readmitted postoperative day number 1 with adynamic ileus. Further examination revealed falling hemoglobin. CT scan of abdomen and pelvis revealed large intra- abdominal hematoma. The patient was taken to the operating room for a laparoscopic abdominal washout of a large hemoperitoneum. No active bleeding was noted at the time. The patient has had no furthe r problems since. He has required blood transfusion, total of 4 units of packed red blood cells will be given through this hospitalization. This morning, he is ambulating with minimum difficulty. He is tolerating general diet, having normal bowel and urinary function. PHYSICAL EXAMINATION: VITAL SIGNS:His vital signs this morning includes blood pressure 121/76, pulse 62, respiratory rate i s 12, temperature 98.5 degrees Fahrenheit, oxygen saturation 96% on room air. HEART: Reveals regular rate and rhythm, no murmurs or gallops auscultated. LUNGS: Clear to auscultation bilaterally. Breathing regular and unlabored. ABDOMEN: Soft, nontender, nondistended. All incisions are intact, clean, and dry. The patient has no peritoneal signs on examination. Laboratory findings today include a CBC with 11,300 white blood cells, hemoglobin and hematocrit 9.7 and 28.3 respectively. Platelet count is 324,000. Metabolic profile: Sodium 142, potassium is 4.1, chloride is 108, bicarbonate 31, BUN 9, creatinine 0.76, glucose 130. Magnesium is 2.0, phosphorus 2.6. DISCHARGE INSTRUCTIONS: The patient has maximized hospital benefit and will be discharged home today with the following instructions: 1. He follows up with me in the [facility] in 2 weeks with a repeat CBC. 2. He is to ambulate daily to avoid complications of venous thromboembolism. 3. He is to avoid weightlifting in excess of 20 pounds until he has been released by me. 4. He may shower but avoid soaking himself in the bathtub or swimming until he has been released by me. 5. He is to call me with any questions or problems including exacerbation of abdominal pain, palpita tion, syncope or intolerance to oral intake. Above instructions given to the patient in the presence of his mother at bedside as well as his nurse . The patient indicated understanding of information given. I answered his questions.
--- NOTE | 2018-03-18 11:43 | EKG ---
Test Reason : STAT Blood Pressure : / mmHG Vent. Rate : 107 BPM Atrial Rate : 107 BPM P-R Int : 116 ms QRS Dur : 084 ms QT Int : 312 ms P-R-T Axes : 064 050 014 degrees QTc Int : 416 ms Sinus tachycardia Possible Left atrial enlargement Borderline ECG Confirmed by ELLIE LIGHT ([id number]) on 03/18/2018 11:43:17 AM Referred By: OFE Confirmed By:ELLIE LIGHT
== END 2018-03-17 12:20 | disposition home or self-care (01) ==
LOC: ERS 07:52 → SURG A 10:00 → IMCU/EMU 18:48 → SURG B 03-16 13:20
PROVIDERS: ADMIT Surgery; ATTEND Surgery
PROC: 0WJG4ZZ Inspection of Peritoneal Cavity, Percutaneous Endoscopic Approach (ICD-10-PCS; principal; 2018-03-15)
DX: K66.1 Hemoperitoneum (principal); R18.8 Other ascites; D62 Acute posthemorrhagic anemia; K56.7 Ileus, unspecified; Z79.891 Long term (current) use of opiate analgesic; Z90.49 Acquired absence of other specified parts of digestive tract
CPT/HCPCS: 36415; 36416; 36430; 51701; 51702; 51798; 71045; 74177; 76705; 80048; 80053; 80306; 80307; 81003; 82533; 82805; 83605; 83690; 83735; 84100; 84146; 85007; 85025; 85027; 85384; 85610; 85730; 86850; 86900; 86901; 93005; 93010; 94640; 96361; 96365; 96366; 96375; 96376; G0378; J0131; J1100; J1200; J1885; J2001; J2175; J2250; J2405; J2543; J2550; J2704; J2765; J3010; J3475; J7050; J7612; J7620; P9016; P9059; S0028